=== PATIENT | female | born 1975 | race Caucasian/White ===

== ENCOUNTER 2020-06-10 11:22 | Outpatient (CLI) | payer OTHER ==
--- NOTE | 2020-06-10 12:34 | RAD ---
EXAM: Lumbar spine 4 views: HISTORY: Low back pain COMPARISON: None FINDINGS: Mild degenerative change. No evidence for acute fracture or dislocation or significant acute osseous process. Alignment:No significant malalignment. Discs: Disc spaces are adequately preserved. No evidence for a focal bone lesion. IMPRESSION: No significant acute process.
== END 2020-06-10 11:23 | disposition home or self-care (01) ==
LOC: BICRAD 11:22
PROVIDERS: ATTEND Family Medicine
DX: M54.5 Low back pain (principal)
CPT/HCPCS: 72110